=== PATIENT | female | born 1975 | race Caucasian/White ===

== ENCOUNTER 2018-04-22 09:04 | Day surgery (SDC) | payer OTHER ==
[2018-04-22 10:10] LABS: ADD MAN DIFF? NO
[2018-04-22 10:15] LABS: WHITE BLOOD COUNT 5.1 10^3/ul (4.8-10.8)
[2018-04-22 10:15] LABS: BASOPHILS % 0.4 % (0.0-2.0); EOSINOPHILS # 0.1 10^3/ul (0.0-0.5); EOSINOPHILS % 1.4 % (0.0-7.0); HEMATOCRIT 36.7 % (37.0-47.0); HEMOGLOBIN 12.8 g/dl (12.0-16.0); LYMPHOCYTES # 1.5 10^3/ul (0.8-2.9); LYMPHOCYTES % 30.4 % (15.0-51.0); MEAN CORPUSCULAR HGB CONC 34.9 g/dl (32.0-37.0); MEAN CORPUSCULAR VOLUME 85.9 fl (82.0-101.0); MEAN PLATELET VOLUME 8.4 fl (7.4-10.4); MONOCYTE # 0.4 10^3/ul (0.3-0.9); MONOCYTES % 8.7 % (0.0-11.0); NEUTROPHILS % 58.9 % (39.0-77.0); PLATELET COUNT 315 10^3/UL (140-415); RED BLOOD COUNT 4.27 10^6/ul (4.20-5.40); RED CELL DISTRIBUTION WIDTH 13.3 % (11.5-14.5)
[2018-04-22] MEDS ORDERED: LABETALOL HCL 20MG INJ IV (13:30)
[2018-04-22] MEDS ORDERED: hydrALAzine 20 MG INJ IV (13:30)
[2018-04-22] MEDS ORDERED: HYDROmorphONE 1 MG/5 ML IV SYRINGE IV (13:34)
[2018-04-22] MEDS: HYDROmorphONE 1 MG/5 ML IV SYRINGE IV ×5 (13:37→15:13)
[2018-04-22] MEDS: FENTAnyl 50 MCG/ML VIAL IV ×3 (14:13→15:16)
[2018-04-22] MEDS: ONDANSETRON 4 MG INJ IV (14:56)
[2018-04-22] MEDS: OXYCODONE/ACETAMINOPHEN (5/325) TAB PO (14:56)
[2018-04-22] MEDS: MEPERIDINE 25 MG INJ IV (15:02)
[2018-04-22] MEDS: METOCLOPRAMIDE 10 MG INJ IV (15:58)
[2018-04-22] MEDS: KETOROLAC 60 MG INJ IM (16:51)
[2018-04-22] MEDS ORDERED: FENTAnyl 50 MCG/ML VIAL (17:06)
[2018-04-22] MEDS ORDERED: GLYCOPYRROLATE 0.4 MG INJ (17:06)
[2018-04-22] MEDS ORDERED: PROPOFOL 20 ML ×2 (17:06)
[2018-04-22] MEDS ORDERED: CEFAZOLIN 1 GM INJ (17:06)
[2018-04-22] MEDS ORDERED: METOCLOPRAMIDE 10 MG INJ (17:06)
[2018-04-22] MEDS ORDERED: ACETAMINOPHEN 1000MG/100ML IV 100 ML (17:06)
[2018-04-22] MEDS ORDERED: ONDANSETRON 4 MG INJ (17:06)
[2018-04-22] MEDS ORDERED: DEXAMETHASONE 4 MG/ML 1 ML INJ ×2 (17:06)
[2018-04-22] MEDS ORDERED: LIDOCAINE 2% (SDV) 5 ML INJ (17:06)
[2018-04-22] MEDS ORDERED: FAMOTIDINE 20 MG INJ (17:06)
[2018-04-22] MEDS ORDERED: MIDAZOLAM 1 MG/ML 2 ML INJ (17:06)
== END 2018-04-22 17:31 | disposition home or self-care (01) ==
LOC: SDS 09:04
DX: N93.9 Abnormal uterine and vaginal bleeding, unspecified (principal); E78.5 Hyperlipidemia, unspecified; I10 Essential (primary) hypertension
CPT/HCPCS: 58563; 84702; 85025; 86850; 86900; 86901

== ENCOUNTER 2019-03-04 15:10 | Emergency (ER) | payer OTHER ==
[2019-03-04] MEDS: TETRACAINE 0.5% 4 ML OPH BOTH EYES (17:16)
[2019-03-04] MEDS: KETOROLAC 30 MG INJ IM (17:18)
== END 2019-03-04 17:21 | disposition home or self-care (01) ==
LOC: FTE 15:10
DX: R51 Headache (principal); I10 Essential (primary) hypertension
CPT/HCPCS: 81025; 96372; 99284-25